=== PATIENT | female | born 1985 | race Caucasian/White ===

== ENCOUNTER 2016-09-02 18:39 | Emergency (ER) | payer BC ==
[~2016-09-02] VITALS: Ht 170.2 cm; Wt 79.1 kg
[2016-09-02] MEDS ORDERED: AUGMENTIN875 MG PO (19:12)
[2016-09-02 19:57] VITALS: BP 105/64
== END 2016-09-02 20:00 | disposition home or self-care (01) ==
LOC: EME 18:39
PROC: 3E0234Z Introduction of Serum, Toxoid and Vaccine into Muscle, Percutaneous Approach (ICD-10-PCS; principal; 2016-09-02)
DX: S00.511A Abrasion of lip, initial encounter (principal); S00.31XA Abrasion of nose, initial encounter; Z23 Encounter for immunization; W54.0XXA Bitten by dog, initial encounter
CPT/HCPCS: 99281; 99284